=== PATIENT | female | born 1970 | race Caucasian/White ===

== ENCOUNTER 2020-06-30 14:54 | Emergency (ER) | payer OTHER | END 2020-06-30 16:20 | disposition home or self-care (01) | LOC: JVIRT 14:54 | DX: B34.9 Viral infection, unspecified (principal); Z11.59 Encounter for screening for other viral diseases | CPT/HCPCS: C9803; Q3014-GT; U0003 ==

== ENCOUNTER 2020-09-12 13:47 | Emergency (ER) | payer OTHER | END 2020-09-12 14:24 | disposition home or self-care (01) | LOC: JVIRT 13:47 | DX: U07.1 COVID-19 (principal) | CPT/HCPCS: C9803; G2251-GT; U0003 ==